=== PATIENT | female | born 1950 | race Caucasian/White ===

== ENCOUNTER 2018-01-11 11:09 | Emergency (ER) | payer MEDICARE, BC, OTHER ==
--- NOTE | 2018-01-11 11:29 | ER Document Report ---
ED Medical Screen (RME) - General Chief Complaint: Leg Swelling Stated Complaint: PAIN IN RT LOWER LEG Time Seen by Provider: 01/11/18 11:19 Notes: 67-year-old female who traveled by car from [place] to [place] on 2017. She then traveled to [place], returned to [place] last night. She has been having pain in the right leg for 5 days, and then noted swelling since last night. She has 2 children with the antiphospholipid syndrome, a son who is on Coumadin for life, a daughter who only requires daily aspirin. She does not know if they inherited the trait from her or her spouse. She reports the pain seems to start along the medial ankle and travel up the side of the leg and then crossover and and travel along the lateral thigh. She reports she had an anemia that was treated with iron infusion a month ago, and it caused her to have severe low back pain so they forego the second planned infusion. She does not know if the pain in her leg is due to the low back problems and prolonged travel time. Brief exam shows tenderness to the medial upper calf more so than deep into the posterior calf. We will check lab work with a d-dimer. If it is undetectable then blood clotting is very unlikely it is probably a muscular problem. If the d-dimer is elevated, then the venous Doppler will be necessary. I have greeted and performed a rapid initial assessment of this patient. A comprehensive ED assessment and evaluation of the patient, analysis of test results and completion of the medical decision making process will be conducted by additional ED providers. - Related Data Allergies/Adverse Reactions: Iodinated Contrast- Oral and IV Dye Allergy (Verified 01/11/18 11:10) codeine Adverse Reaction (Verified 01/11/18 11:10) Physical Exam - Vital signs Vitals: Temp Pulse Resp BP Pulse Ox 98.4 F 86 17 151/73 H 97 01/11/18 11:17 01/11/18 11:17 01/11/18 11:17 01/11/18 11:17 01/11/18 11:17 Course - Vital Signs Vital signs: Temp Pulse Resp BP Pulse Ox 98.4 F 86 17 151/73 H 97 01/11/18 11:17 01/11/18 11:17 01/11/18 11:17 01/11/18 11:17 01/11/18 11:17
[2018-01-11 11:50] LABS: ABSOLUTE BASOPHILS # (AUTO) 0.1 10^3/uL (0.0-0.2); ABSOLUTE EOSINOPHILS # (AUTO) 0.2 10^3/uL (0.0-0.6); ABSOLUTE MONOCYTES (AUTO) 0.3 10^3/uL (0.1-1.4); ABSOLUTE NEUT (AUTO) 4.4 10^3/uL (1.7-8.2); EOSINOPHILS % (AUTO) 3.9 % (0-6); HEMATOCRIT 32.1 % (36.0-47.0); HEMOGLOBIN 9.8 g/dL (12.0-15.5); LYMPHOCYTES % (AUTO) 17.2 % (13-45); MEAN CORPUSCULAR HGB CONC 30.7 g/dL (32.0-36.0); MEAN CORPUSCULAR VOLUME 69 fl (80-97); MONOCYTES % (AUTO) 4.9 % (3-13); PLATELET COUNT 321 10^3/uL (150-450); RED BLOOD COUNT 4.69 10^6/uL (3.72-5.28); RED CELL DISTRIBUTION WIDTH 20.6 % (11.5-14.0); TOTAL CELLS COUNTED % (AUTO) 100 %
[2018-01-11 12:16] LABS: ALANINE AMINOTRANSFERASE 29 U/L (9-52); ALBUMIN 3.5 g/dL (3.5-5.0); ALKALINE PHOSPHATASE 93 U/L (38-126); ANION GAP 8 (5-19); ASPARTATE AMINO TRANSFERASE 33 U/L (14-36); BILIRUBIN,DIRECT 0.2 mg/dL (0.0-0.4); BILIRUBIN,TOTAL 0.3 mg/dL (0.2-1.3); BLOOD UREA NITROGEN 14 mg/dL (7-20); CALCIUM 9.3 mg/dL (8.4-10.2); CARBON DIOXIDE 29 mmol/L (22-30); CHLORIDE 105 mmol/L (98-107); GLUCOSE 112 mg/dL (75-110); POTASSIUM 4.2 mmol/L (3.6-5.0); SODIUM 142.4 mmol/L (137-145)
--- NOTE | 2018-01-11 14:00 | ER Document Report ---
ED General - General Chief Complaint: Leg Swelling Stated Complaint: PAIN IN RT LOWER LEG Time Seen by Provider: 01/11/18 11:19 - HPI Patient complains to provider of: Right leg swelling Notes: Patient coming in for evaluation of right leg swelling. Patient was seen by triage provider notes provided below 67-year-old female who traveled by car from [place] to [place] on 2017. She then traveled to [place], returned to [place] last night. She has been having pain in the right leg for 5 days, and then noted swelling since last night. She has 2 children with the antiphospholipid syndrome, a son who is on Coumadin for life, a daughter who only requires daily aspirin. She does not know if they inherited the trait from her or her spouse. She reports the pain seems to start along the medial ankle and travel up the side of the leg and then crossover and and travel along the lateral thigh. She reports she had an anemia that was treated with iron infusion a month ago, and it caused her to have severe low back pain so they forego the second planned infusion. She does not know if the pain in her leg is due to the low back problems and prolonged travel time. Brief exam shows tenderness to the medial upper calf more so than deep into the posterior calf. We will check lab work with a d-dimer. If it is undetectable then blood clotting is very unlikely it is probably a muscular problem. If the d-dimer is elevated, then the venous Doppler will be necessary. Patient agrees with above stated. Patient did have a d-dimer drawn that was otherwise elevated. Patient denies any history of DVT yourself however states that 2 children have had blood clots in the past. Patient otherwise resting comfortably. States that she did most of the driving from [place] to [place] a few days ago. Patient states most pain is behind her knee. - Related Data Allergies/Adverse Reactions: Iodinated Contrast- Oral and IV Dye Allergy (Verified 01/11/18 11:10) codeine Adverse Reaction (Verified 01/11/18 11:10) Past Medical History - Social History Smoking Status: Former Smoker Chew tobacco use (# tins/day): No Frequency of alcohol use: Rare Drug Abuse: None Family History: Reviewed & Not Pertinent Patient has suicidal ideation: No Patient has homicidal ideation: No Renal/ Medical History: Denies: Hx Peritoneal Dialysis Past Surgical History: Reports: Hx Cholecystectomy Review of Systems - Review of Systems Constitutional: No symptoms reported EENT: No symptoms reported Cardiovascular: No symptoms reported Respiratory: No symptoms reported Gastrointestinal: No symptoms reported Genitourinary: No symptoms reported Female Genitourinary: No symptoms reported Musculoskeletal: Other - Leg swelling knee pain Skin: No symptoms reported Hematologic/Lymphatic: No symptoms reported Neurological/Psychological: No symptoms reported Physical Exam - Vital signs Vitals: Temp Pulse Resp BP Pulse Ox 98.4 F 86 17 151/73 H 97 01/11/18 11:17 01/11/18 11:17 01/11/18 11:17 01/11/18 11:17 01/11/18 11:17 Interpretation: Normal - General General appearance: Appears well, Alert - HEENT Head: Normocephalic, Atraumatic Eyes: Normal Pupils: PERRL - Respiratory Respiratory status: No respiratory distress Chest status: Nontender Breath sounds: Normal Chest palpation: Normal - Cardiovascular Rhythm: Regular Heart sounds: Normal auscultation Murmur: No - Abdominal Inspection: Normal Distension: No distension Bowel sounds: Normal Tenderness: Nontender Organomegaly: No organomegaly - Back Back: Normal, Nontender - Extremities General upper extremity: Normal inspection, Nontender, Normal color, Normal ROM , Normal temperature General lower extremity: Normal inspection, Nontender, Normal color, Normal ROM , Normal temperature, Normal weight bearing. No: Edema - Swelling of the right lower extremity greater than the left. 1+ edema to the right lower extremity., David's sign - Neurological Neuro grossly intact: Yes Cognition: Normal Orientation: AAOx4 [place] Coma Scale Eye Opening: Spontaneous [place] Coma Scale Verbal: Oriented Sindi Coma Scale Motor: Obeys Commands Sindi Coma Scale Total: 15 Speech: Normal Motor strength normal: LUE, RUE, LLE, RLE Sensory: Normal - Psychological Associated symptoms: Normal affect, Normal mood - Skin Skin Temperature: Warm Skin Moisture: Dry Skin Color: Normal Course - Re-evaluation Re-evalutation: 01/11/18 15:42 Patient's d-dimer is elevated however patient does admit to recent receiving transfusion approximately 1-2 weeks prior to this visit. Possibility elevation of the d-dimer as that the patient's ultrasound is negative for SVT DVT. Recommend since I continue to have an ultrasound performed approximately 2 weeks. Otherwise continue with baby aspirin ambulation is most possible while traveling discharged home. - Vital Signs Vital signs: Temp Pulse Resp BP Pulse Ox 97.8 F 72 17 159/68 H 97 01/11/18 14:06 01/11/18 14:06 01/11/18 11:17 01/11/18 14:06 01/11/18 14:06 - Laboratory Result Diagrams: 01/11/18 11:33 01/11/18 11:33 Laboratory results interpreted by me: 01/11/18 01/11/18 01/11/18 11:33 11:33 11:33 Hgb 9.8 L Hct 32.1 L MCV 69 L MCH 21.0 L MCHC 30.7 L RDW 20.6 H D-Dimer 3.80 H Glucose 112 H Total Protein 6.0 L Discharge - Discharge Clinical Impression: Right leg swelling Leg pain Qualifiers: Laterality: right Qualified Code(s): M79.604 - Pain in right leg Condition: Good Disposition: HOME, SELF-CARE Instructions: Dependent Edema ([facility]), Ice & Elevation ([facility]) Additional Instructions: Your laboratory studies today showed a elevated d-dimer concern for a blood clot therefore we did a ultrasound of your leg the ultrasound is negative no signs of superficial venous thrombosis or a deep venous thrombosis. I would recommend to take Tylenol Motrin for your pain control. Elevate your leg at nighttime make sure that she apply heat and ice to the area of pain as well he can alternate between the 2. Return to ER symptoms worsen.
--- NOTE | 2018-01-11 14:01 | RADIOLOGY REPORT (SQ) ---
EXAM DESCRIPTION: VENOUS BILATERAL LOWER COMPLETED DATE/TIME: 01/11/2018 1:51 pm REASON FOR STUDY: elevated d dimer COMPARISON: None. TECHNIQUE: Dynamic and static granados scale and color images acquired of both lower extremity venous sy stems. Selected spectral images acquired with additional compression and augmentation maneuvers. Imag es stored on PACS. LIMITATIONS: None. FINDINGS: RIGHT LEG COMMON FEMORAL AND FEMORAL: Normal phasicity, compression and augmentation. No visualized echogenic m aterial on granados scale. No defects on color images. POPLITEAL: Normal compression and augmentation. No visualized echogenic material on granados scale. No de fects on color images. POSTERIOR TIBIAL AND PERONEAL VEINS: Normal compression and augmentation. No visualized echogenic mat erial on granados scale. No defects on color image. GSV AND SSV: Normal compression. No visualized echogenic material on granados scale. No defects on color images. ANY DEEP VENOUS INSUFFICIENCY: Not evaluated. ANY EVIDENCE OF POPLITEAL CYST: No. OTHER: No other significant finding. LEFT LEG COMMON FEMORAL AND FEMORAL: Normal phasicity, compression and augmentation. No visualized echogenic m aterial on granados scale. No defects on color images. POPLITEAL: Normal compression and augmentation. No visualized echogenic material on granados scale. No de fects on color images. POSTERIOR TIBIAL AND PERONEAL VEINS: Normal compression and augmentation. No visualized echogenic mat erial on granados scale. No defects on color images. GSV AND SSV: Normal compression. No visualized echogenic material on granados scale. No defects on color images. ANY DEEP VENOUS INSUFFICIENCY: Not evaluated. ANY EVIDENCE POPLITEAL CYST: No. OTHER: No other significant finding. IMPRESSION: NO EVIDENCE DVT OR SVT IN EITHER LEG. TECHNICAL DOCUMENTATION: JOB ID: [id number] [email or web address]- All Rights Reserved Reading location - IP/workstation name: [email or web address]
[2018-01-11 14:12] VITALS: BP 159/68
== END 2018-01-11 14:12 | disposition home or self-care (01) ==
LOC: ER 11:09
DX: M79.89 Other specified soft tissue disorders (principal); M79.604 Pain in right leg; Z90.49 Acquired absence of other specified parts of digestive tract; Z88.6 Allergy status to analgesic agent
CPT/HCPCS: 36415; 80053; 85025; 85379; 93970; 99284